=== PATIENT | male | born 1950 | race Caucasian/White ===

== ENCOUNTER → 2018-06-05 | Outpatient (CLI) | payer MEDICARE, BC ==
[~2018-06-05] MED LIST: AMBIEN10 MG PO; CLONAZEPAM0.5 MG PO; DEPAKOTE250 MG PO; EFFEXOR XR 3737.5 MG PO; FLOMAX0.4 MG PO; IOPAMIDOL 370 MG/ML 200 ML INFUS..BTL INJ ONE; KLONOPIN0.5 MG PO; SEROQUEL25 MG PO; SODIUM CHLORIDE 0.9% 50ML 50 ML ONE; SYNTHROID25 MCG PO; TYLENOL # 31 EA PO; Z LAMICTAL; Z.0.AMBIEN CR12.5 MG; Z.0.ATIVAN0.5 MG; Z.0.DEPAKOTE500 MG PO
[2018-06-05 11:28] LABS: ANION GAP 14.3 mmol/L (8-16); BLOOD UREA NITROGEN 11 mg/dL (7-26); BUN/CREATININE RATIO 14 (6-25); CALCIUM 9.2 mg/dL (8.4-10.2); CARBON DIOXIDE 26 mmol/L (22-29); CHLORIDE 105 mmol/L (98-107); CREATININE, SERUM 0.78 mg/dL (0.72-1.25); EST GLOMERULAR FILTRATION RATE > 60 ML/MIN (60-); GLUCOSE 86 mg/dL (74-118); POTASSIUM 4.3 mmol/L (3.5-5.1); SODIUM 141 mmol/L (136-145)
--- NOTE | 2018-06-05 12:34 | Diagnostic Imaging Report ---
EXAM: CT Chest WITH contrast 06/05/2018 10:39 AM INDICATION: Chest radiograph 09/14/2014 and CTA Abdomen/Pelvis 01/25/2017. COMPARISON: None TECHNIQUE: Chest was scanned utilizing a multidetector helical scanner from the lung apex through the level of the adrenal glands without administration of IV contrast. Coronal and sagittal reformations were obtained. Pulmonary embolism protocol was performed. IV CONTRAST: 100 cc of Isovue 370 RADIATION DOSE: Total DLP: 556 mGy*cm Estimated effective dose: (DLP x 0.014 x size factor) mSv COMPLICATIONS: None FINDINGS: LINES/ TUBES: None. PULMONARY ARTERIES: The main pulmonary artery measures 2.1 cm. No evidence of pulmonary embolism to the level of the segmental pulmonary arteries. The subsegmental pulmonary arteries are not well opacified. The right ventricle to left ventricle ratio is >1 with apparent bowing of the interventricular septum to the left. LUNGS AND AIRWAYS: The central airways are patent. There is linear subsegmental atelectasis at the lung bases. PLEURA: The pleural spaces are clear. HEART AND MEDIASTINUM: The thyroid gland is normal. No mediastinal, hilar or axillary lymphadenopathy. The heart is normal in size.. Trace pericardial effusion. UPPER ABDOMEN: Limited non-contrast views of the upper abdomen show no abnormality within the visualized liver, spleen, pancreas, or kidneys. The adrenal glands are normal. BONES: Mild loss of vertebral body height at T11, unchanged since CTA on 01/25/2017. SOFT TISSUES: Unremarkable. IMPRESSION: No evidence of pulmonary embolism to the level of the segmental pulmonary arteries. No mass identified to account for the patient's hemoptysis. Right ventricle to left ventricle ratio of >1 on axial images with apparent bowing of the interventricular septum, which could represent right heart strain in the acute setting or findings of right heart dysfunction in the chronic setting. Correlation with Cardiac echo may be considered if clinically indicated. The above findings were discussed with Dr. Lázaro Haas on 06/05/2018 at 12:45 PM, who responded indicating that the communication was understood. Signed by: Dr. Jesus Aguilar MD on 06/05/2018 12:52 PM
== END ==
LOC: CT 10:31
PROVIDERS: ATTEND Internal Medicine Interventional Cardiology
DX: R04.2 Hemoptysis (principal); I82.409 Acute embolism and thrombosis of unspecified deep veins of unspecified lower extremity
CPT/HCPCS: 36415; 71260; 80048; Q9967